=== PATIENT | male | born 1985 | race Caucasian/White ===

== ENCOUNTER 2019-11-08 16:17 | Emergency (ER) | payer MEDICAID ==
[~2019-11-08] VITALS: Ht 162.6 cm; Wt 80.0 kg
[2019-11-08 17:17] VITALS: BP 134/89
== END 2019-11-08 19:00 | disposition home or self-care (01) ==
LOC: ER 16:17
DX: K04.7 Periapical abscess without sinus (principal); K00.7 Teething syndrome
CPT/HCPCS: 99281

== ENCOUNTER 2020-05-12 13:38 | Emergency (ER) | payer MEDICAID ==
[~2020-05-12] VITALS: Ht 165.1 cm; Wt 73.0 kg
[2020-05-12 13:54] VITALS: BP 148/98
[2020-05-12] MEDS ORDERED: IBUPROFEN 600MG TABLET PO ONE (14:45)
== END 2020-05-12 14:56 | disposition home or self-care (01) ==
LOC: ER 13:38
DX: K08.89 Other specified disorders of teeth and supporting structures (principal)
CPT/HCPCS: 99282; 99283

== ENCOUNTER 2023-07-19 06:20 | Emergency (ER) | payer OTHER ==
[~2023-07-19] VITALS: Ht 154.9 cm; Wt 70.0 kg
[~2023-07-19 06:20] MED LIST: AMOX1TAB16 PO
[2023-07-19 06:30] VITALS: BP 133/89; PULSE 63; RESP 16; TEMP 98.4; O2SAT 99
== END 2023-07-19 07:15 | disposition home or self-care (01) ==
LOC: ER 06:20
DX: S05.32XD Ocular laceration without prolapse or loss of intraocular tissue, left eye, subsequent encounter (principal); X58.XXXD Exposure to other specified factors, subsequent encounter
CPT/HCPCS: 99281

== ENCOUNTER 2025-05-17 16:15 | Emergency (ER) | payer OTHER, MEDICAID ==
[~2025-05-17] VITALS: Ht 162.6 cm; Wt 79.0 kg
[2025-05-17 16:22] VITALS: BP 158/109; TEMP 36.6; O2SAT 100
[2025-05-17 16:26] VITALS: PULSE 117; RESP 20; O2SAT 98
[2025-05-17] MEDS ORDERED: DOXY100C5 MT (18:14)
[2025-05-17] MEDS: CEFTRIAXONE SODIUM 500MG VIAL IM ONE (18:30)
[2025-05-17 18:44] LABS: CLARITY URINE CLEAR (CLEAR); GLUCOSE URINE NEGATIVE (NEGATIVE); KETONES URINE NEGATIVE (NEGATIVE); LEUKOCYTE ESTERASE URINE 1+ (NEGATIVE); NITRITE URINE NEGATIVE (NEGATIVE); OCCULT BLOOD URINE NEGATIVE (NEGATIVE); PH URINE 5.5 (4.5-8.0); PROTEIN URINE NEGATIVE (NEGATIVE); SPECIFIC GRAVITY URINE 1.002 (1.005-1.030); UROBILINOGEN URINE 0.2 E.U./dL (0.2-1.0)
[2025-05-17 19:54] LABS: COLOR URINE STRAW (YELLOW)
[2025-05-17 19:55] LABS: RBC URINE NONE SEEN /hpf (0-2); SQUAMOUS EPITHELIAL CELL URINE RARE /lpf (RARE/1+)
[2025-05-17 19:56] LABS: BACTERIA URINE NONE SEEN
[2025-05-19 05:08] LABS: HIV SCREEN 4G Non Reactive (Non Reactive)
[2025-05-20 09:06] LABS: CHLAMYDIA TRACHOMATIS NAA Negative (Negative); NEISSERIA GONORRHOEAE NAA Positive (Negative)
== END 2025-05-17 19:06 | disposition home or self-care (01) ==
LOC: ER 16:15
DX: A64 Unspecified sexually transmitted disease (principal)
CPT/HCPCS: 87491; 87591; 81003; 86592; 36415; 87389; 96372; 99283; J0696; Z7610